=== PATIENT | female | born 1995 | race African-American/Black ===

== ENCOUNTER 2025-01-02 19:01 | Emergency (ER) | payer OTHER, SELFPAY ==
--- NOTE | ~2025-01-02 | US_ITS ---
FIRST TRIMESTER ULTRASOUND 01/02/2025 22:10 CDT Ordering provider: Hue Welsh APRN History: . abdominal pain, vaginal bleeding . Comparison: None. FINDINGS: INTRAUTERINE GESTATIONAL SAC: Present. Measures 1.3 cm. YOLK SAC: Present. POLE: Present. Measures 0.3 cm be equivalent to 6 weeks and 0 days. ELIANE is August 28, 2025 heart rate is 125 bpm. UTERUS: The uterus measures 9.2x 4.8x.3 centimeters in length which is within normal limits. No myome trial masses. FREE FLUID: None. OVARIES: Normal in size with the right measuring 4.2x 2.6x 2.1 cm and the left measuring 2.5x 1.9x 1. 8 cm. Doppler flow is demonstrated within both ovaries. Cystic areas seen inferiorly in the right ova ry. ADNEXAL MASSES: None. IMPRESSION: Single live intrauterine of 6 weeks and 0 days. ELIANE is August 28, 2025. Reviewed, dictated and finalized at location A. IMPRESSION: Single live intrauterine of 6 weeks and 0 days. ELIANE is August 28 025.
[2025-01-02 19:10] VITALS: BP 146/81; PULSE 100; RESP 20; TEMP 36.3; O2SAT 100
[2025-01-02 20:59] VITALS: O2SAT 100
--- OUTSIDE RECORDS SUMMARY | 2025-01-02 21:06 | XMS_ITS | Clinical Summary ---
Author Organization [facility] Address [address] [place] [address] Care Team Providers Care Paralegal Legal Secretary Name Role Phone Unavailable Primary Care Provider Unavailabl e Source Comments [facility],non-owned Affiliates and Associated Physician Practices is amultiple site organization consisting of ambulatory clinics and hospital sitesin [place], [place], [place] and [place]. This disclosure is being madepursuant to the Care Everywhere program and may not contain all information available regarding this patient. Last updated 18.[facility] Allergies Active Allergy Reactions Criticality Noted Date Comments Cetirizine Palpitations 06/26/2019 Medications * Be aware that medications may not be up to date on this document. Alwaysverify current medications with the patient. Medication Sig Dispensed Refills Start Date End Date Status sertraline (ZOLOFT) 25 MG tablet Take 25 mg by mouth once daily Active naproxen (NAPROSYN) 500 MG tablet Take 1 tablet by mouth 2 times daily 60 tablet 08/19/2019 Active Additional Information Patient not taking.Reported on 01/05/2021 fluconazole (DIFLUCAN) 150 MG tablet 150mg PO once today. May repeat in 72 hours if symptoms persist 2 tablet 11/05/2019 Active Additional Information Patient not taking.Reported on 01/05/2021 albuterol HFA (PROVENTIL;VENTOLI N;PROAIR) 108 (90 Base) MCG/ACT inhaler Inhale 2 (two) puffs by mouth every 4 hours as needed for Shortness of Breath or Wheezing 1 Inhaler 03/17/2021 Active fluticasone propionate (FLONASE) 50 MCG/ACT nasal spray [place] 2 (two) sprays into each nostril once daily 16 g 03/17/2021 Active montelukast (SINGULAIR) 10 MG tabletIndications: Asthma Take 1 (one) tablet by mouth at bedtime Reasons: Asthma 30 tablet 03/17/2021 Active promethazine (PHENERGAN) 6.25 MG/5ML solution Take 5 mL by mouth nightly as needed (cough) 240 mL 03/17/2021 Active guaiFENesin ER 12hr (MUCINEX) 600 MG tablet Take 1 (one) tablet by mouth every 12 hours 30 tablet 10/15/2021 Active ondansetron (ZOFRAN) 4 MG tablet Take 1 (one) tablet by mouth every 6 hours as needed for Nausea/Vomiting 10 tablet 10/15/2021 Active diphenhydrAMINE (Benadryl) 25 MG capsule Take 1 (one) capsule by mouth every 4 hours as needed for Itching 0 08/02/2022 Active acetaminophen (Tylenol) 500 MG capsule Take 1 (one) capsule by mouth every 4 hours as needed for Fever or Pain 30 capsule 10/07/2023 Active Active Problems Problem Noted Date Diagnosed Date Migraine 02/02/2010 Overview (07/08/2015): Other dyspnea and respiratory abnormality 2009 Family History Medical History Relation Name Comments Arthritis - Osteo Maternal Grandmother Diabetes Maternal Grandmother Hypertension Maternal Grandmother Relation Name Status Comments Maternal Grandfather Maternal Grandmother Mother (Age 48) Asthma att ack Social History Tobacco Use Types Packs/Day Years Used Date Smoking Tobacco: Never Smokeless Tobacco: Never Tobacco Cessation:Counseling Given: Not Answered Alcohol Use Standard Drinks/Week Comments Yes 0 (1 standard drink = 0.6 oz pur e alcohol) occasionally liquor Sex and Gender Information Value Date Recorded Sex Assigned at Not on file Gender Identity Not on file Sexual Orientation Not on file Last Filed Vital Signs Vital Sign Reading Time Taken Comments Blood Pressure 134/90 10/06/2023 8:54 PM CRM FUNCTIONAL ANALYST Pulse 97 10/06/2023 8:54 PM CRM FUNCTIONAL ANALYST Temperature 36.7 C (98.1 F) 10/06/2023 8:54 PM CRM FUNCTIONAL ANALYST Respiratory Rate 17 10/06/2023 8:54 PM CRM FUNCTIONAL ANALYST Oxygen Saturation 100% 10/06/2023 8:54 PM CRM FUNCTIONAL ANALYST Inhaled Oxygen Concentration - - Weight 99.8 kg (220 lb) 08/02/2022 11:31 PM CDT Height 165.1 cm (5' 5 ) 08/02/2022 11:31 PM CDT Body Mass Index 36.61 08/02/2022 11:31 PM CDT Plan of Treatment Health Maintenance Due Date Last Done Comments HIV SCREENING 2012 HEPATITIS C SCREENING 08/06/2015 DTAP/TDAP/TD VACCINES (1 - Tdap) 2016 HEPATITIS B VACCINE (1 of 3 - 19+ 3-dose series) 2016 PAP SMEAR 06/04/2023 06/04/2020 COVID-19 VACCINE (2 - 2023-2 5 season) 2024 05/13/2021 INFLUENZA VACCINE (#1) 2024 0, 07/30/2009 DEPRESSION SCREENING 10/08/2024 ZOSTER VACCINE (1 of 2) 2047 HIB VACCINE Aged Out No longer eligi ble based on patient's age to complete this topic HPV VACCINE Aged Out No longer eligi ble based on patient's age to complete this topic MENINGOCOCCAL (Group B) VACCINE SHARED DECISION-MAKING Aged Out No longer eligible based on patient's age to complete this topic MENINGOCOCCAL GROUPS A/C/Y/W VACCINE Aged Out No longer eligible b ased on patient's age to complete this topic PNEUMOCOCCAL VACCINE Aged Out No long er eligible based on patient's age to complete this topic Procedures Procedure Name Priority Date/Time Associated Diagnosis Comments HM PAP SMEAR Routine 06/04/2020 from Last 3 Months or Most Recently Relevant to Health Maintenance Results * HM PAP SMEAR (06/04/2020) Scanned Document HEALTH MAINTENANCE from Last 3 Months or Most Recently Relevant to Health Maintenance
--- OUTSIDE RECORDS SUMMARY | 2025-01-02 21:06 | XMS_ITS | Clinical Summary ---
Author Organization [facility] Address [address] [place] [address] Care Team Providers Care Cream Gatherer Name Role Phone No, Physician Unavailable No, Physician Primary Care Provider [phone] Allergies Active Allergy Reactions Criticality Noted Date Comments Cetirizine Palpitations Low 06/26/2019 Medications sertraline (ZOLOFT) 50 mg tablet TK 1 T PO QD 2 8 Active sertraline (ZOLOFT) 50 mg tablet Take 50 mg by mouth daily. Active hydrOXYzine (VISTARIL) 25 mg capsule Take 1 capsule (25 mg total) by mouth 3 (three) times a day as needed for anxiety. 30 capsule 8 Active ondansetron ODT (ZOFRAN-ODT) 4 mg disintegrating tablet Take 1 tablet (4 mg total) by mouth every 4 (four) hours as needed for nausea or vomiting 24 tablet 4 Active Active Problems Problem Noted Date Diagnosed Date Cephalalgia 05/23/2013 Anxiety 05/23/2013 Medical History Medical History Date Comments Anxiety Depression Social History Tobacco Use Types Packs/Day Years Used Date Smoking Tobacco: Never Smokeless Tobacco: Never Alcohol Use Standard Drinks/Week Comments Yes 0 (1 standard drink = 0.6 oz pur e alcohol) Personal Safety Answer Date Recorded Have you ever been in or are you currently in a harmful physical or emotional relationship or is someone making you feel afraid or unsafe? Denies 10/10/2023 Comments No Sex and Gender Information Value Date Recorded Sex Assigned at Not on file Legal Sex Female 1:05 PM GRANITE POLISHER APPRENTICE Gender Identity Not on file Sexual Orientation Not on file Obstetrics History Last Filed Vital Signs Vital Sign Reading Time Taken Comments Blood Pressure 155/89 10/10/2023 7:10 PM GRANITE POLISHER APPRENTICE Pulse 69 10/10/2023 7:10 PM GRANITE POLISHER APPRENTICE Temperature 36.3 C (97.4 F) 10/10/2023 4:13 PM GRANITE POLISHER APPRENTICE Respiratory Rate 19 10/10/2023 4:13 PM GRANITE POLISHER APPRENTICE Oxygen Saturation 98% 10/10/2023 7:10 PM GRANITE POLISHER APPRENTICE Inhaled Oxygen Concentration - - Weight 97.5 kg (215 lb) 10/10/2023 4:13 PM GRANITE POLISHER APPRENTICE Height 165.1 cm (5' 5 ) 10/10/2023 4:13 PM GRANITE POLISHER APPRENTICE Body Mass Index 35.78 10/10/2023 4:13 PM GRANITE POLISHER APPRENTICE Plan of Treatment Health Maintenance Due Date Last Done Comments Cervical Cancer Screening 1997 Depression Screening 1997 Hepatitis C Screening 1997 Varicella Vaccines (2 of 2 - 2-dose childhood series) 2001 08/31/1998 Regular Well Visit/Exam 18-64 2015 Pneumococcal vaccine <65 (1 of 2 - PCV) 2016 DTaP/Tdap/Td Vaccine (8 - Td or Tdap) 03/18/2022 03/18/2012, 05/18/2011, 09/01/2002, Additional history exists Covid-19 Vaccine (2 - 2023-2 5 season) 2024 05/13/2021 Influenza Vaccine (#1) 2024 10/06/2010, 2008 Hepatitis B Screening Completed 02/15/1998 , 1997, 1997 HPV Vaccines Completed 10/06/2010, 06/08, 10/15/[address] [place] [facility] Care Teams Cream Gatherer Relationship Specialty Start Date End Date No, Physician PCP - General 10/10/23 No, Physician 08/23/18
--- OUTSIDE RECORDS SUMMARY | 2025-01-02 21:06 | XMS_ITS | Referral Summary ---
Author Organization [facility] Address [address] [place] [address] Care Team Providers Care Business Analyst Sales Operations Name Role Phone No, Physician Unavailable No, Physician Primary Care Provider [phone] Allergies Active Allergy Reactions Criticality Noted Date [...] Date Diagnosed Date Cephalalgia 05/23/2013 Anxiety 05/23/2013 Social History Tobacco Use Types Packs/Day Years [...] on file Legal Sex Female 1:05 PM MEDICAL ASSISTANT SUPERVISOR Gender Identity Not on file Sexual Orientation Not on file Last Filed Vital Signs Vital Sign Reading Time Taken Comments Blood Pressure 155/89 10/10/2023 7:10 PM MEDICAL ASSISTANT SUPERVISOR Pulse 69 10/10/2023 7:10 PM MEDICAL ASSISTANT SUPERVISOR Temperature 36.3 C (97.4 F) 10/10/2023 4:13 PM MEDICAL ASSISTANT SUPERVISOR Respiratory Rate 19 10/10/2023 4:13 PM MEDICAL ASSISTANT SUPERVISOR Oxygen Saturation 98% 10/10/2023 7:10 PM MEDICAL ASSISTANT SUPERVISOR Inhaled Oxygen Concentration - - Weight 97.5 kg (215 lb) 10/10/2023 4:13 PM MEDICAL ASSISTANT SUPERVISOR Height 165.1 cm (5' 5 ) 10/10/2023 4:13 PM MEDICAL ASSISTANT SUPERVISOR Body Mass Index 35.78 10/10/2023 4:13 PM MEDICAL ASSISTANT SUPERVISOR Plan of Treatment Not on file Insurance [facility] Care Teams Business Analyst Sales Operations Relationship Specialty Start Date End Date No, Physician PCP - General 10/10/23 No, Physician 08/23/18
--- OUTSIDE RECORDS SUMMARY | 2025-01-02 21:06 | XMS_ITS | Clinical Summary ---
Author Organization [facility] Address [address] [place] [address] Care Team Providers Care Agriscience Technology Instructor Name Role Phone Malou Seth DO Primary Care Provider [phone] Allergies No known active allergies Medications sertraline (ZOLOFT) 25 mg tabletIndicatio ns:Anxiety state TAKE 1 TABLET(25 MG) BY MOUTH DAILY 30 Tablet 3 4 Active fluconazole (DIFLUCAN) 150 mg tablet Take 1 tab (150 mg) by mouth on day one. Take additional tab (150 mg) by mouth 3 days after initial dose 2 Tablet 4 Active metroNIDAZOLE (METROGEL) 0.75 % (37.5mg/5 gram) vaginal gel Insert 5 grams daily at bedtime for 5 nights 70 Gram 4 Active Active Problems Problem Noted Date Diagnosed Date Prediabetes 01/01/2024 Engages in vaping 11/27/2023 Anxiety 05/23/2013 Resolved Problems Problem Noted Date Diagnosed Date Resolved Date Cephalalgia 05/23/2013 08/21/2024 Migraine 02/02/2010 08/21/2024 Encounters Date Type Department Care Team Description 12/13/2024 External Device Data ST[facility] ABSTRACTION Provider, Abstract 12/12/2024 External Device Data [facility] ABSTRACTION Provider, Abstract 12/09/2024 External Device Data [facility] ABSTRACTION Provider, Abstract 11/25/2024 External Device Data [facility] ABSTRACTION Provider, Abstract 11/04/2024 External Device Data [facility] ABSTRACTION Provider, Abstract 10/29/2024 External Device Data [facility] ABSTRACTION Provider, Abstract 10/28/2024 External Device Data [facility] ABSTRACTION Provider, Abstract from Last 3 Months Immunizations Immunization Administration Dates Next Due (ADACEL/BOOSTRIX)(10 YR UP) TDAP VACCINE, 0.5ML, IM 03/18/2012,05/18/2011 (GARDASIL)(9-45 YRS) HUMAN P APILLOMAVIRUS VACCINE, TYPES 6, 11, 16, 18, QUADRIVALENT (4VHPV), 3 DOSE, IM 10/06/2010,06/24/2010,10/15/2009 (IPOL)(6 WKS AND UP) POLIOVI MEHNAZ VACCINE, INACTIVATED (IPV), 3 DOSE, SUBCUT OR IM 04/03/1998,1997 (M-M-R II/PRIORIX)(12 MO UP) MEASLES, MUMPS AND RUBELLA VIRUS VACCINE, 0.5 ML IM/SUBCUT 09/01/2002,08/31/1998 (MENACTRA)(9 MO-55 YR) MENIN GOCOCCAL POLYSACCHARIDE A, C, Y AND W-135 DIPTHERIA TOXOID CONJUGATE VACCINE, (PF), 0.5ML, IM 10/15/2009 (PFIZER)(12 YR UP) COVID-19 VACCINE - EMERGENCY USE AUTHORIZATION, MRNA, [id number](PF) 30 MCG/0.3 ML IM SUSP 05/13/2021 (VARIVAX)(12 MOS UP)VARICELL A VIRUS VACCINE (PF) 0.5 ML, SUB CUT 08/31/1998 Hepatitis B Vaccine, Unspeci fied Formulation 02/15/1998,1997,1997 Influenza Virus Vaccine, Spl it Virus (Incl. Purified Surface antigen)-retired CODE 10/06/2010,07/30/2009 Poliovirus Vaccine Live Oral 02/15/1998 Family History Medical History Relation Name Comments Diabetes Maternal Grandmother Heart Disease Maternal Grandmother Hypertension Maternal Grandmother Anxiety Sister Depression Sister Relation Name Status Comments Maternal Grandmother Sister Social History Tobacco Use Types Packs/Day Years Used Date Smoking Tobacco: Never Smokeless Tobacco: Never Tobacco Cessation:Counseling Given: Not Answered Alcohol Use Standard Drinks/Week Comments Never 0 (1 standard drink = 0.6 oz pur e alcohol) Comments No Sex and Gender Information Value Date Recorded Sex Assigned at Not on file Legal Sex Female 8:13 AM ELECTRIC POWER LINE EXAMINER Gender Identity Not on file Sexual Orientation Not on file Last Filed Vital Signs Vital Sign Reading Time Taken Comments Blood Pressure 122/80 08/21/2024 9:15 AM ELECTRIC POWER LINE EXAMINER Pulse 61 01/01/2024 8:29 AM CDT Temperature 36.6 C (97.8 F) 01/01/2024 8:29 AM CDT Respiratory Rate 16 11/26/2023 8:24 AM ELECTRIC POWER LINE EXAMINER Oxygen Saturation 98% 01/01/2024 8:29 AM CDT Inhaled Oxygen Concentration - - Weight 115.7 kg (255 lb) 08/21/2024 9:15 AM ELECTRIC POWER LINE EXAMINER Height 165.1 cm (5' 5 ) 08/21/2024 9:15 AM ELECTRIC POWER LINE EXAMINER Body Mass Index 42.43 08/21/2024 9:15 AM ELECTRIC POWER LINE EXAMINER Plan of Treatment Upcoming Encounters Date Type Department Care Team (Late st Contact Info) Description 01/07/2025 11:00 AM CDT Ancillary Procedure [place] [id number] [address] 01/07/2025 11:45 AM CDT Office Visit [place] [address] [address] Maricel Blake DO [address] [address] Health Maintenance Due Date Last Done Comments HPV/Cotest (-) 2018 DTAP/TDAP/TD VACCINES (3 - T d or Tdap) 03/18/2022 03/18/2012, 05/18/2011 INFLUENZA VACCINE (#1) 2024 COVID-19 Vaccine ( season) 06/08/202403/2021 Preventative Visit- Commercial 10/08/2024 12/05/2023 , 11/27/2023 CERVICAL CANCER SCREENING 12/05/2026 PAP SMEAR 12/05/2026 12/05/2023 HEPATITIS B VACCINES Completed 02/15/1998, 1997, 1997 HPV VACCINES Completed 10/06/2010, 06/08, 10/15/2009 Procedures Procedure Name Priority Date/Time Associated Diagnosis Comments CERV/VAG CYTO AGE BASED SCREEN PAP W CT/NG, TRICH Routine 12/05/2023 3:48 PM ELECTRIC POWER LINE EXAMINER Encounter for gynecological examination without abnormal finding Screening for cervical cancer Screening for HPV (human papillomavirus) Screening for STDs (sexually transmitted diseases) from Last 3 Months or Most Recently Relevant to Health Maintenance Results * CERV/VAG CYTO AGE BASED SCREEN PAP W CT/NG, TRICH (12/05/2023 3:48 PM ELECTRIC POWER LINE EXAMINER) COMMENT (PAP): [facility] [place] Comment: This order for age-based cervical cancer and STI screening follows ACOG guidelines(PB 168, 140, MMG659). See individual assays for performing site location. CLINICAL INFORMATION [facility] [place] Comment:SCREENING LAST MENSTRUAL PERIOD [facility] [place] Comment:NONE GIVEN PREV PAP: [facility] [place] Comment:NONE GIVEN PREV BX: [facility] [place] Comment:NONE GIVEN SOURCE [facility] [place] Comment:Endocervix ADEQUACY: [facility] [place] Comment: Satisfactory for evaluation. Endocervical/transformation zone component present. Age and/or menstrual status not provided PAP INTERP [facility] [place] Comment: Cytology Results: Negative for intraepithelial lesion or malignancy. COMMENT (PAP TEST) [facility] [place] Comment: This Pap test has been evaluated with computer assisted technology. PHYSICAL EDUCATION INSTRUCTOR: Fan Mccain- Vishnu Comment: LMT, CT(ASCP) CT screening location: [place] [address] [place] [address] EXPLANATORY NOTE Que Here@ [employer]- Vishnu Comment: EXPLANATORY NOTE: The Pap is a screening test for cervical cancer. It is not a diagnostic test and is subject to false negative and false positive results. It is most reliable when a satisfactory sample, regularly obtained, is submitted with relevant clinical findings and history, and when the Pap result is evaluated along with historic and current clinical information. C TRAC RNA NOT DETECTED NOT DETECTED [facility] [place] N.GONORRHOEAE RNA, TMA NOT DETECTED NOT DETECTED [facility] [place] COMMENT INFECTIOUS DISEASE [facility] [place] Comment: The analytical performance characteristics of this assay, when used to test SurePath(TM) specimens have been determined by [facility]. The modifications have not been cleared or approved by the FDA. This assay has been validated pursuant to the CLIA regulations and is used for clinical purposes. For additional information, please refer to https://908 Devices.getFound.ie/faq/DGN855 (This link is being provided for information/ educational purposes only.) TRICHOMONAS VAGINALIS,QUALITAT VANESSA,PAP VIAL NOT DETECTED NOT DETECTED [facility] [place] Comment: The analytical performance characteristics of this assay have been determined by [facility]. The modifications have not been cleared or approved by the FDA. This assay has been validated pursuant to the CLIA regulations and is used for clinical purposes. For additional information, please refer to http://908 [employer].getFound.ie/ faq/Trichomonastma (This link is being provided for information/ educational purposes only.) [facility] [address] [place] [address] Chuck KIM Genital SWAB OF ENDOCERVIX / Unknown 12/05/2023 3:48 PM ELECTRIC POWER LINE EXAMINER 12/06/2023 3:17 AM ELECTRIC POWER LINE EXAMINER Sahara Torres NP PATHOLOGY/CYTOLOGY ORDERAB LES Final Result [facility] [phone] [facility] [address] [place] [address] from Last 3 Months or Most Recently Relevant to Health Maintenance Insurance [employer] Member Subscriber Plan / Payer (Ef fective 2023-Present) Name:Priscilla Dawson Relation to Subscriber:Self Name:Priscilla Dawson Payer ID:Not on file Group ID:Not on file Type:Commercial Address: [place] [id number] [facility] [employer] [employer] Care Teams Agriscience Technology Instructor Relationship Specialty [place] [address] [facility] [address] [place] [address] PCP - General Internal Medicine 11/27/23
[2025-01-02 21:07] VITALS: O2SAT 100
--- NOTE | 2025-01-02 21:17 | ED_ITS ---
HPI - General Chief complaint: Vaginal Bleeding Stated complaint: vaginal bleeding Time Seen by Provider: 01/02/25 20:45 History of Present Illness HPI Narrative: Patient is a 29-year-old female who presents to the with complaints of vaginal bleeding and abdominal pain while being 7 weeks with her 1st . Earlier today she wiped herself after she went to the bathroom and noticed a ?tiny clot. Patient endorses lower abdominal cramping that is intermittent. She denies any urinary symptoms, recent fevers, CVA tenderness, abnormal vaginal discharge. Patient denies any other medical history relevant to this ER visit. Related Data Allergies Allergy/AdvReac Type Severity Reaction Status Date / Time No Known Allergies Allergy Verified 01/02/25 19:04 Review of Systems 2 Review of Systems: All systems reviewed & are unremarkable except as noted in HPI and below Exam 2 Narrative: GENERAL: Well appearing, well-nourished, non-toxic, in no acute distress. HEAD: Normocephalic, atraumatic. NECK: Supple. No adenopathy, no masses. RESPIRATORY: Airway patent, respirations nonlabored. Clear to auscultation bilaterally, no rales, rhonchi, wheezing. CARDIOVASCULAR: Regular rate and rhythm without murmurs, rubs, or gallops. Peripheral pulses 2+ and equal bilaterally. ABDOMINAL: Soft, nontender, nondistended, no hepatosplenomegaly. Normoactive BS. MUSCULOSKELETAL: Moves all extremities. Strength/ROM intact without gross deformities. SKIN: Warm, dry, normal color. No rashes. NEURO: A&O X3. Speech clear. Cranial nerves II-XII intact. No ataxic movements. PSYCHIATRIC: Appropriate mood and affect. Normal interaction. *Pt declined vaginal exam. Course Vital Signs Vital signs: Vital Signs Temperature 36.3 C L 01/02/25 19:10 Pulse Rate 100 01/02/25 19:10 Respiratory Rate 20 01/02/25 19:10 Blood Pressure 146/81 H 01/02/25 19:10 Pulse Oximetry 100 01/02/25 19:10 Oxygen Delivery Room Air 01/02/25 19:10 Temperature 36.3 C L 01/02/25 19:10 Pulse Rate 89 01/02/25 21:56 Respiratory Rate 18 01/02/25 21:56 Blood Pressure 142/84 H 01/02/25 21:56 Pulse Oximetry 100 01/02/25 21:56 Oxygen Delivery Room Air 01/02/25 19:10 MDM - OB/Uterine Contractions MDM Narrative Medical decision making narrative: Patient is a 29-year-old female who presents to the with complaints of vaginal bleeding and abdominal pain while being 7 weeks with her 1st . Earlier today she wiped herself after she went to the bathroom and noticed a ?tiny clot. Patient endorses lower abdominal cramping that is intermittent. She denies any urinary symptoms, recent fevers, CVA tenderness, abnormal vaginal discharge. Patient denies any other medical history relevant to this ER visit. Labs Ordered: CBC, CMP, beta hCG quant, type and screen, RhoGAM, PTT, INR Imaging Ordered: Ultrasound Ob less than 14 weeks Medications Ordered: 1 L normal saline IV bolus Results: Patient's ultrasound indicates Single live intrauterine of 6 weeks and 0 days. ELIANE is August 28, 2025. Diagnosis: 1st trimester with vaginal bleeding and cramping Patient Education/Shared MDM: Results of imaging and lab work shared with patient. She denies any more abdominal cramping since she has been in the ER. Patient strongly advised to maintain hydration status upon discharge and follow- up with her OBGYN on Sunday. She will be discharged home with no new prescriptions. Strict return precautions provided. Patient verbalized understanding and is in agreement with plan. Vital signs stable at time of discharge. All questions answered. Differential Diagnosis Differential diagnosis: Likely other (Vaginal bleeding during , UTI, dehydration) Lab Data Attestation: I reviewed the patient's lab results. 01/02/25 21:37 01/02/25 21:37 Labs: Lab Results 01/02/25 Range/Units 21:37 WBC 5.2 (4.5-10.0) K/mm3 RBC 4.55 (4.2-5.4) M/mm3 Hgb 11.8 L (12.0-15.0) g/dL Hct 35.5 L (37.0-47.0) % MCV 78.0 L (80-100) fl MCH 25.9 L (26-34) pg MCHC 33.2 (32-36) g/dl RDW 16.0 H (11.5-14.5) % Plt Count 253 (150-375) k/mm3 MPV 9.8 (7.4-10.4) fl Immature Gran % (Auto) 0.2 (0-0.5) % Neut % (Auto) 59.8 (45.5-73.1) % Lymph % (Auto) 31.2 (18.3-44.2) % Morrison % (Auto) 8.0 (2.6-8.5) % Eos % (Auto) 0.6 (0-4.4) % Baso % (Auto) 0.2 (0.2-1.2) % Lymph # (Auto) 1.63 (0.9-3.2) K/mm3 Morrison # (Auto) 0.4 (0.1-0.6) K/mm3 Eos # (Auto) 0.0 (0-0.3) K/mm3 Baso # (Auto) 0.0 (0.0-0.1) K/mm3 Abs Immat Gran (auto) 0.01 (0.00-0.031) K/mm3 Absolute Neuts (auto) 3.1 (1.3-6.7) K/mm3 Absolute Nucleated RBC 0.000 (0.0-0.012) K/mm3 Band Neutrophils % Not Reportable Nucleated RBC % 0.0 (0.0-0.2) % Atypical Lymphocytes Present Platelet Estimate Adequate (Adequate) Schistocytes None seen PT 14.9 H (11.1-14.7) Seconds INR 1.1 APTT 24.4 (22.3-36.8) Seconds Sodium 138 (137-145) mmol/L Potassium 4.1 (3.4-5.0) mmol/L Chloride 104 (98-107) mmol/L Carbon Dioxide 23 (22-30) mmol/L Anion Gap 11 (4-12) mmol/L BUN 9 (7-17) mg/dL Creatinine 0.73 (0.7-1.0) mg/dL Estim Creat Clear Calc 127 ml/min Estimated GFR > 60 (59 - ) Glucose 110 (65-110) mg/dL Calcium 9.3 (8.4-10.2) mg/dL Total Bilirubin 0.4 (0.2-1.3) mg/dL AST 26 (14-36) U/L ALT 24 (6-35) U/L Alkaline Phosphatase 62 (38-126) U/L Total Protein 8.0 (6.3-8.2) g/dL Albumin 4.3 (3.5-5.1) g/dL Beta HCG, Quant 09239.00 mIU/ML Urine Color Yellow (Yellow) Urine Appearance Clear (Clear) Urine pH 6.5 (5.0-9.0) Ur Specific [place] 1.015 (1.001-1.035) Urine Protein Negative (Negative) mg/dL Urine Glucose (UA) Negative (Negative) mg/dL Urine Ketones Negative (Negative) mg/dL Ur Blood (Man) Negative (Negative) Urine Nitrate Negative (Negative) Urine Bilirubin Negative (Negative) Urine Urobilinogen 1.0 (<2.0) mg/dL Leukocyte Esterase Rfl Negative (Negative) YOLANDA/UL Blood Type A Positive Antibody Screen Negative Screen Not Reportable Baby's Blood Type Not Reportable Baby's NIDHI Not Reportable Doses of RhIg Required 0 Imaging Data Attestation: I personally reviewed and interpreted this imaging study as follows: Radiologist's impression: Impressions Obstetrics Ultrasound 01/02/25 23:08 IMPRESSION: Single live intrauterine of 6 weeks and 0 days. ELIANE is August 28, 2025. Discharge Plan Discharge Clinical Impression: Vaginal bleeding, Threatened , , normal first Patient Disposition: Home, Self-Care Condition: Stable Instructions: Antibiotic Form, Threatened Miscarriage (ED), (ED) Additional Instructions: Please return to the ER with any worsening symptoms. Follow-up with OBGYN as soon as possible. Take all regularly scheduled medications as prescribed. Patient Language: Ukrainian Follow-up/Referrals: Dorinda,Malou [Other] Time of Disposition: 00:24
[2025-01-02 21:45] LABS: Basophils Percent Auto 0.2 % (0.2-1.2); Eosinophils Percent Auto 0.6 % (0-4.4); Hematocrit 35.5 % (37.0-47.0); Hemoglobin 11.8 g/dL (12.0-15.0); Immature Granulocyte Absolute 0.01 K/mm3 (0.00-0.031); Immature Granulocyte Percent A 0.2 % (0-0.5); Lymphocytes Absolute Auto 1.63 K/mm3 (0.9-3.2); Lymphocytes Percent Auto 31.2 % (18.3-44.2); Mean Corpuscular HGB Conc 33.2 g/dl (32-36); Mean Corpuscular Hemoglobin 25.9 pg (26-34); Mean Platelet Volume 9.8 fl (7.4-10.4); Monocytes Absolute Auto 0.4 K/mm3 (0.1-0.6); Neutrophils Absolute Auto 3.1 K/mm3 (1.3-6.7); Neutrophils Percent Auto 59.8 % (45.5-73.1); Platelet Count Result 253 k/mm3 (150-375); Red Blood Count 4.55 M/mm3 (4.2-5.4); White Blood Count 5.2 K/mm3 (4.5-10.0)
[2025-01-02 21:47] LABS: Add Urine Microscopic? NO; Appearance Urine Clear (Clear); Bilirubin Urine Negative (Negative); Blood Urine Negative (Negative); Color Urine Yellow (Yellow); Glucose Urine UA Negative (Negative); Ketones Urine Negative (Negative); Leukocyte Esterase Ur Negative LEU/UL (Negative); Nitrate Urine Negative (Negative); Protein Urine Negative (Negative); Specific Grav Ur 1.015 (1.001-1.035); pH Urine 6.5 (5.0-9.0)
[2025-01-02 21:55] LABS: Alanine Aminotransferase 24 U/L (6-35); Albumin Level 4.3 g/dL (3.5-5.1); Alkaline Phosphatase 62 U/L (38-126); Anion Gap 11 mmol/L (4-12); Aspartate Amino Transferase 26 U/L (14-36); Bilirubin,Total 0.4 mg/dL (0.2-1.3); Blood Urea Nitrogen 9 mg/dL (7-17); Calcium 9.3 mg/dL (8.4-10.2); Carbon Dioxide 23 mmol/L (22-30); Chloride 104 mmol/L (98-107); Estimated CRCL calculation 127 ml/min; Estimated Glomerular Filt Rate > 60; Glucose 110 mg/dL (65-110); Potassium 4.1 mmol/L (3.4-5.0); Sodium 138 mmol/L (137-145)
[2025-01-02 21:56] VITALS: BP 142/84; PULSE 89; RESP 18; O2SAT 100
[2025-01-02 21:56] LABS: INR 1.1; Prothrombin Time 14.9 Seconds (11.1-14.7)
[2025-01-02 21:57] LABS: Partial Thromboplastin Time 24.4 Seconds (22.3-36.8)
[2025-01-02 21:58] LABS: Atypical Lymphocytes Present; Platelet Estimate Adequate (Adequate); Schistocytes None Seen
[2025-01-02] MEDS: SODIUM CHLORIDE 0.9% IV 1,000 ML 999 ML IV CONT (21:58)
[2025-01-02 22:08] VITALS: O2SAT 100
[2025-01-03 00:47] VITALS: BP 139/80; PULSE 92; RESP 18; O2SAT 100
== END 2025-01-03 00:49 | disposition home or self-care (01) ==
PROVIDERS: Emergency Provider Registered Nurse
DX: O20.0 Threatened abortion (principal); Z3A.01 Less than 8 weeks gestation of pregnancy
CPT/HCPCS: 36415; 76801; 76817; 80053; 81003; 84702; 85025; 85461; 85610; 85730; 86850; 86900; 86901; 96360; 99284; J7030

== ENCOUNTER 2025-08-08 14:10 | Outpatient (CLI) | payer OTHER, SELFPAY ==
--- OUTSIDE RECORDS SUMMARY | 2021-03-24 05:09 | XMS_ITS | Continuity of Care Document ---
Author Organization [facility] Address [address] [place] [address] Phone Care Team Providers Care Development Mgr Name Role Phone Dakota MAYNORKamryn Unavailable Unavailable Allergies, Adverse Reactions, Alerts Substance Reaction Status Criticality No Known Allergies Active No Inform ation Medications Medication Instructions Dosage Effective Dates (start - stop) Status Comments Zoloft 50 mg tablet take 1 tablet by ora l route every day 50 MG - Active cetirizine 10 mg tablet take 1 tablet by oral route every day 10 MG - Active albuterol sulfate HFA 90 mcg/actuation aerosol inhaler inhale 2 puff by inhalation route every 4 - 6 hours as needed - Active albuterol sulfate 2.5 mg/3 mL (0.083 %) solution for nebulization inhale 3 milliliter by nebulization route 3 times every day 2.5 MG - Active Procedures Procedure Date Psychiatric Diag Eval W/Med Svcs 2017 Psychotherapy, 60 Min W/pt & Family Memb er Psychotherapy, 60 Min W/pt & Family Memb er Psychotherapy, 60 Min W/pt & Family Memb er Psychotherapy, 60 Min W/pt & Family Memb er Psychotherapy 30 Min W/pt And/or Family Member Psychotherapy, 60 Min W/pt & Family Memb er OFFICE/OUTPATIENT VISIT, EST Urinalysis, Auto, w/o Scope COLLECTION OF VENOUS BLOOD BY VENIPUNCTU RE THYROID STIMULATING HORMONE (TSH) BLOOD COUNT; COMPLETE (CBC), AUTOMATED D IFF COMPRE METAB PANEL LIPID PANEL OFFICE/OUTPATIENT VISIT, EST URINE TEST, BY VISUAL COLOR CO MPARISON METHODS Urinalysis, Auto, w/o Scope OFFICE/OUTPATIENT VISIT, EST Alcohol and/or drug screening 6 SCREENING TEST OF VISUAL ACUITY, QUANTIT ATIVE, BILATERAL OFFICE/OUTPATIENT VISIT, EST OFFICE OUTPT EST 25 MIN Screening test, pure tone, air only SCREENING TEST OF VISUAL ACUITY, QUANTIT ATIVE, BILATERAL 1ST COMPRE PREV MED E/M NEW PT -Mar OFFICE OUTPT EST 25 MIN URINE TEST, BY VISUAL COLOR CO MPARISON METHODS Urinalysis, Auto, w/o Scope BLOOD COUNT; HEMATOCRIT (HCT) 5 BLOOD COUNT; HEMOGLOBIN (HGB) 5 COLLECTION OF VENOUS BLOOD BY VENIPUNCTU RE Interest Payment Debit Charge 5 Advance Directives Directive Yes / No Effective Date File Name No Information Encounters Encounter Description Practice Location Reason(s) For Visit Diagnoses Date Provider Providers Copied on Encounter [facility], [address], [place], [place], [address] , tel: [phone] [facility] No Information 1 Dakota Harry. [address], [place], [place], [address], [place]. [phone] [facility], [address], [place], [place], [address] , [place] tel: [phone] [facility] No Information 8 No Information Psychiatric Diag Eval W/Med Svcs [facility], [address], [place], [place], [address] , [place] tel: [phone] [facility] Obsessive-comp ulsive disorder, unspecified 8 No Information Psychotherapy, 60 Min W/pt & Family Member [facility], [address], [place], [place], [address] , [place] tel: [phone] [facility] Obsessive-Comp ulsive Disorder 6 No Information Psychotherapy, 60 Min W/pt & Family Member [facility], [address], [place], [place], [address] , [place] tel: [phone] [facility] Obsessive-Comp ulsive DisorderSomato form disorder, unspecified 6 No Information Psychotherapy, 60 Min W/pt & Family Member [facility], [address], [place], [place], [address] , [place] tel: [phone] [facility] anxiety (chief complaint) Obsessive-Comp ulsive Disorder 6 No Information Psychotherapy, 60 Min W/pt & Family Member [facility], [address], [place], [place], [address] , [place] tel: [phone] [facility] Obsessive-Comp ulsive DisorderSomato form disorder, unspecified 6 No Information Psychotherapy 30 Min W/pt And/or Family Member [facility], [address], [place], [place], [address] , [place] tel: [phone] [facility] Obsessive-Comp ulsive Disorder 6 No Information Psychotherapy, 60 Min W/pt & Family Member [facility], [address], [place], [address] , [place] tel: [phone] [facility] Somatoform disorder, unspecifiedObs essive-Compuls manny Disorder 6 No Information OFFICE/OUTPATI ENT VISIT, EST [facility], [address], [place], [place], [address] , [place] tel: [phone] [facility] refills on Albut. (chief complaint) Depression (chief complaint) Other asthmaDepressi onEncntr for general adult medical exam w/o abnormal findings 6 No Information OFFICE/OUTPATI ENT VISIT, EST [facility], [address], [place], [place], [address] , [place] tel: [phone] [facility] insect bite (chief complaint) Cellulitis of left legInsect bite (nonvenomous), left ankle, sequela 6 Manuel Guy. [address], [place], [place], [address], [place]. [phone] Referring Provider: Brooks Jackson, [address], [place], [address] . tel:[phone] OFFICE/OUTPATI ENT VISIT, EST [facility], [address], [place], [place], [address] , [place] tel: [phone] [facility] check up (chief complaint) Encounter for general adult medical examination with abnormal findingsObesit yBody mass index (BMI) 31.0-31.9, adultEncounter for screening for other disorder 6 No Information OFFICE/OUTPATI ENT VISIT, EST [facility], [address], [place], [place], [address] , [place] tel: [phone] [facility] sports pe (chief complaint) Screening for other eye conditionsAsth maEnvironmenta l allergiesGener al medical exam for sports competition 5 Jakub Holland. [address], [place], [place], [address], [place]. [phone] Referring Provider: Amalia Call, [address], [place], [address] . tel:[phone] OFFICE OUTPT EST 25 MIN [facility], [address], [place], [address] , [place] tel:[phone] [facility] ear pain (chief complaint) Acute NARGIS - Acute middle ear effusion 5 Holly Ortiz. [address], [place], [place], [address], [place]. tel:[phone] Referring Provider: Diana Barrera, [address], [place], [address] . tel:[phone] 1ST COMPRE PREV MED E/M NEW PT 09-23 [facility], [address], [place], [place], [address] , tel: [phone] [facility] wce (chief complaint) Routine Child Health ExamExaminatio n of eyes and visionAsthmaCo nstipation 5 Jakub Holland. [address], [place], [place], [address], . tel:[phone] Referring Provider: Amalia Call, [address], [place], [address] . tel:[phone] Family History Family Member Type Diagnosis Age At Onset No Information Payers Payer name Insurance type Covered republican ID Authoriza tion(s) No Information Social History Type Description Quantity Date Captured Comments Alcohol Use Details Unknown Caffeine Use Details Unknown Tobacco Use Status No Information Smoking Status No Information Sex Female Chief Complaint And Reason For Visit No Information Reason For Referral Reason For Referral No Information Plan Of Treatment Date Type Action Status Future Order: Lab Order CBC (H/H , RBC, INDICES, WBC, PLT) (OC68), Ordered on: Ordered Future Order: Lab Order Comprehe nsive Metabolic Panel (OC71), Ordered on: Ordered Future Order: Lab Order Lipid Pa gal (OC73), Ordered on: Ordered Future Order: Lab Order TSH with Reflex to Free T4 ([id number]), Ordered on: Ordered Future Order: Lab Order Urinalys is, Macroscopic ([id number]), Ordered on: Ordered History Of Present Illness Encounter Date Complaint History Of Prese nt Illness anxiety This is a follow up visit. The symptoms occur every day. There is continuation of initial symptoms. The patient presents with anxious/fearful thoughts, compulsive thoughts and thoughts of or suicide. refills on Albut. 20y/o AAF here today to discuss allergies and asthma, currently not taking zyrtec as she was previously on kaz which made her feel sleepy and was concerned about this being too strong. Patient also needs a refill of her albuterol which she puts into her nebulizer at home. Patient not having to use this all that often. Depression Patient reports that she feels depressed when she is at home and alone and with her thoughts she feels down and depressed but if she is out of her house she never feels this way. There are times when she has thoughts of but not of suicide, having thoughts of what if she were just not here. insect bite C/O red warm irr itated area back of left leg above heel/ankle area, ? insect bite, no known injury or direct tissue damage. No fever, chills, blister, ulceration, drainage or discharge, matting or crusting, streaking. Doing well otherwise. check up 20 y/o AAF here today for transfer to adult care from the pediatric side of the clinic without concerns or complaints to mention. sports pe 19 year old on [employer]. [facility] and reviewed. Hx of Allergies and Mild Intemittent Asthma, C/O RT knee pain. No hx of trauma. Recently went to [employer]. ear pain Onset: 2 Weeks. Duration: > 1 hour. The pain is located in both ears. The severity of the problem is moderate. The problem has not changed. Symptoms are not associated with recent antibiotic ear drop use and recent swimming in pool. Denies relieving factors. Associated symptoms include nasal congestion. Pertinent negatives include cough, ear drainage or fever. Additional information: Hx of nasal allergies, previously on nasonex and cetirizine. wce 19 year old new patient in for [facility] with grandmother. vaccines UTD . Hx of Mild Intermittent Asthma. Uses Albuterol PRN. A few months ago she had a UTI and Yeast infection. She completed a course of antibioitcs and other med for yeast infection. She still has intermittent foul odor to her urine. She denies sexual activity. Hx of constipation. BMs usually 1-2 times per week. She was prescribed Miralax but only uses it PRN. Functional Status Date Functional Assessmen t No Information Instructions Date Instruction Additional Infor fanny Discussed nutrition and exercise Related to General medical exam for sports competition Assessments Type Assessment Date No Information Patient Care Teams Name Effective Dates (start - stop) Status Members No Information
--- OUTSIDE RECORDS SUMMARY | 2025-08-08 14:16 | XMS_ITS | Clinical Summary ---
Author Organization [facility] Address [address] [place] [id number] Care Team Providers Care Steelworker Name Role Phone No, Physician Unavailable No, Physician Primary Care Provider [phone] Allergies Active Allergy Reactions Criticality Noted Date [...] on file Legal Sex Female 1:05 PM FINISHING AND SHIPPING SUPERVISOR Gender Identity Not on file Sexual Orientation Not on file Obstetrics History Last Filed Vital Signs Vital Sign Reading Time Taken Comments Blood Pressure 155/89 10/10/2023 7:10 PM FINISHING AND SHIPPING SUPERVISOR Pulse 69 10/10/2023 7:10 PM FINISHING AND SHIPPING SUPERVISOR Temperature 36.3 C (97.4 F) 10/10/2023 4:13 PM FINISHING AND SHIPPING SUPERVISOR Respiratory Rate 19 10/10/2023 4:13 PM FINISHING AND SHIPPING SUPERVISOR Oxygen Saturation 98% 10/10/2023 7:10 PM FINISHING AND SHIPPING SUPERVISOR Inhaled Oxygen Concentration - - Weight 97.5 kg (215 lb) 10/10/2023 4:13 PM FINISHING AND SHIPPING SUPERVISOR Height 165.1 cm (5' 5) 10/10/2023 4:13 PM FINISHING AND SHIPPING SUPERVISOR Body Mass Index 35.78 10/10/2023 4:13 PM FINISHING AND SHIPPING SUPERVISOR Plan of Treatment Health Maintenance Due Date [...] Additional history exists Covid-19 Vaccine (2 - 2024-2 6 season) 2025 05/13/2021 Influenza Vaccine (#1) 2025 10/06/2010, 2008 Hepatitis B Screening Completed 02/15/1998 , 1997, 1997 HPV Vaccines Completed 10/06/2010, 06/08, 10/15/2009 [facility] Care Teams Steelworker Relationship Specialty Start Date End Date No, Physician PCP - General 10/10/23 No, Physician 08/23/18
[2025-08-08 14:37] VITALS: BP 133/82; PULSE 80
[2025-08-08 14:46] VITALS: BP 138/82; PULSE 86
[2025-08-08 14:48] LABS: Hematocrit 33.2 % (37.0-47.0); Hemoglobin 11.1 g/dL (12.0-15.0); Immature Granulocyte Percent A 0.4 % (0-0.5); Lymphocytes Absolute Auto 1.07 K/mm3 (0.9-3.2); Mean Corpuscular HGB Conc 33.4 g/dl (32-36); Mean Corpuscular Hemoglobin 26.1 pg (26-34); Mean Corpuscular Volume 78.1 fl (80-100); Nucleated Red Blood Cells Absolute Auto 0.000 K/mm3 (0.0-0.012); Nucleated Red Blood Cells Perc 0.0 % (0.0-0.2); Platelet Count Result 262 k/mm3 (150-375); Red Blood Count 4.25 M/mm3 (4.2-5.4); White Blood Count 4.9 K/mm3 (4.5-10.0)
[2025-08-08 14:58] LABS: Alanine Aminotransferase 18 U/L (6-35); Albumin Level 3.5 g/dL (3.5-5.1); Alkaline Phosphatase 195 U/L (38-126); Anion Gap 7 mmol/L (4-12); Aspartate Amino Transferase 26 U/L (14-36); Bilirubin,Total 0.6 mg/dL (0.2-1.3); Blood Urea Nitrogen 4 mg/dL (7-17); Calcium 8.4 mg/dL (8.4-10.2); Carbon Dioxide 20 mmol/L (22-30); Chloride 109 mmol/L (98-107); Estimated Glomerular Filt Rate > 60; Glucose 93 mg/dL (65-110); Potassium 3.4 mmol/L (3.4-5.0); Sodium 136 mmol/L (137-145); Total Protein 6.9 g/dL (6.3-8.2); Uric Acid 5.0 mg/dL (2.5-7.5)
[2025-08-08 14:59] LABS: Total Protein Urine Random 19 mg/dL; Ur Ttl Prot Creatinine Ratio 0.13 mg/mg (0-0.20)
[2025-08-08 15:01] VITALS: BP 124/79; PULSE 80
[2025-08-08 15:01] LABS: Add Urine Microscopic? YES; Appearance Urine Clear (Clear); Glucose Urine UA Negative (Negative); Leukocyte Esterase Ur 1+ LEU/UL (Negative); Need Manual Microscopic Reviewed; Nitrate Urine Negative (Negative); Non Pathogenic Casts 0-2; Specific Grav Ur 1.015 (1.001-1.035)
[2025-08-08 15:25] VITALS: BP 133/82; PULSE 80
== END 2025-08-08 15:28 | disposition home or self-care (01) ==
LOC: ANHOBOP 14:14 → ANHOBPP 14:15
PROVIDERS: Visit Provider Obstetrics & Gynecology
DX: O13.9 Gestational [pregnancy-induced] hypertension without significant proteinuria, unspecified trimester (principal); R82.90 Unspecified abnormal findings in urine; Z3A.00 Weeks of gestation of pregnancy not specified
CPT/HCPCS: 36415; 59025; 80053; 81001; 82570; 84156; 84550; 85025; 87086; 99199